=== PATIENT | female | born 1965 | race Caucasian/White ===

== ENCOUNTER 2019-12-07 20:39 | Emergency (ER) | payer SELFPAY ==
[~2019-12-07] VITALS: Ht 157.5 cm; Wt 97.5 kg
[2019-12-07 20:40] VITALS: BP 128/113
--- NOTE | 2019-12-07 20:43 | NUR ---
PT TAKEN TO BED 11
--- NOTE | 2019-12-07 20:45 | NUR ---
53 Y/O FEMALE PRESENTS TO ER WITH C/O BURNING/NEEDLES WITH URINATION, LATERAL LBP, BILATERAL LOWER ABDOMINAL QUADRANT PAIN 02/17. PT STATES SHE HAS BEEN HAVING THESE ISSUES FOR 1 YEAR. LATERAL LOWER BACK, AND BILATERAL LOWER ABDOMINAL QUADRANTS ARE TTP. WITH INTERMITTENT MONTHS WITHOUT SYMPTOMS. SOMETIMES HAS BLOOD WHEN WIPING AFTER URINATION. ALSO NAUSEA, CHILLS. DENIES VOMITING, DIARRHEA. AFEBRILE. DENIES SOB R/R EQUAL AND UNLABORED. PT IS MENOPAUSAL. SIDE RAIL X1, WILL CONTINUE TO MONITOR. PMH: HYPOTHYROIDISM NKDA
--- NOTE | 2019-12-07 20:55 | NUR ---
PT AMBULATED TO BATHROOM WITH STEADY GAIT. UA COLLECTED.
[2019-12-07] MEDS ORDERED: DEXAMETHASONE 4 MG/ML VIAL PO ONE (21:15)
[2019-12-07] MEDS ORDERED: MAGNESIUM CITRATE 300 ML BTL PO ONE (21:15)
--- NOTE | 2019-12-07 21:25 | NUR ---
GIS PHYSICAL SCIENTIST AT BEDSIDE.
--- NOTE | 2019-12-07 21:28 | NUR ---
PT TRANSFER TO CT VIA W/C.
[2019-12-07 21:39] LABS: BASOPHILS # (AUTO) 0.1 K/uL (0.00-0.22); BASOPHILS % (AUTO) 0.7 % (0.0-2.0); EOSINOPHILS # (AUTO) 0.4 K/uL (0-0.4); EOSINOPHILS % (AUTO) 4.8 % (0.0-4.0); HEMATOCRIT 45.4 % (36-48); HEMOGLOBIN 15.3 g/dL (12.0-16.0); LYMPHOCYTES # (AUTO) 2.5 K/uL (2.5-16.5); LYMPHOCYTES % (AUTO) 32.7 % (20.5-51.1); MEAN CORPUSCULAR HEMOGLOBIN 34 pg (27-31); MEAN CORPUSCULAR HGB CONC 34 g/dL (33-37); MEAN CORPUSCULAR VOLUME 99.9 fL (80-94); MONOCYTES # (AUTO) 0.4 K/uL (0.8-1.0); MONOCYTES % (AUTO) 4.9 % (1.7-9.3); NEUTROPHILS # (AUTO) 4.3 K/uL (1.8-7.7); NEUTROPHILS % (AUTO) 56.9 % (42.2-75.2); PLATELET COUNT (AUTO) 419 K/uL (140-450); RED BLOOD CELL COUNT(AUTO) 4.55 MIL/uL (4.20-5.40); RED CELL DISTRIBUTION WIDTH 13.6 % (11.6-13.7); WHITE BLOOD COUNT (AUTO) 7.6 K/uL (4.8-10.8)
--- NOTE | 2019-12-07 21:42 | NUR ---
PT RETURN FROM CT
[2019-12-07 21:44] LABS: BILIRUBIN,URINE 1+ (NEGATIVE); BLOOD, URINE 3+ (NEGATIVE); COLOR,URINE ORANGE (YELLOW); LEUKOCYTE ESTERASE ,URINE 1+ (NEGATIVE); NITRITE, URINE NEGATIVE (NEGATIVE); PH,URINE 6.5 (5.0-9.0); UGLUCOSE NEGATIVE (NEGATIVE)
[2019-12-07 21:53] LABS: ANION GAP 14.3 (8-16); CARBON DIOXIDE 26.6 mmol/L (21-32); CREATININE 1.3 mg/dL (0.6-1.3); POTASSIUM 3.9 mmol/L (3.5-5.1); TOTAL BILIRUBIN 0.7 mg/dL (0.0-1.0)
[2019-12-07 21:57] LABS: APPEARANCE,URINE CLOUDY (CLEAR)
[2019-12-07 22:00] LABS: RBC,URINE 20-50 /HPF (0-5); WBC,URINE 20-60 /HPF (0-5)
--- NOTE | 2019-12-07 22:14 | NUR ---
PT RESTING IN BED
[2019-12-07] MEDS ORDERED: HYDROcodone/APAP 5/325 MG 1 TAB TAB PO ONE (22:20)
[2019-12-07] MEDS ORDERED: PHENAZOPYRIDINE 100 MG TAB PO ONE (22:20)
[2019-12-07] MEDS ORDERED: CEPHALEXIN 500 MG CAP PO ONE (22:20)
[2019-12-07 22:35] VITALS: BP 128/83
--- NOTE | 2019-12-07 22:35 | NUR ---
Patient discharged with v/s stable. Written and verbal after care instructions given and explained. Patient alert, oriented and verbalized understanding of instructions. Ambulatory with steady gait. All questions addressed prior to discharge. ID band removed. Patient advised to follow up with PMD. Rx of PYRIDIUM; NORCO; KEFLEX; DULCOLAX given. Patient educated on indication of medication including possible reaction and side effects. Opportunity to ask questions provided and answered.
== END 2019-12-07 22:35 | disposition home or self-care (01) ==
LOC: MED 20:39
DX: N39.0 Urinary tract infection, site not specified (principal); K59.00 Constipation, unspecified; B35.6 Tinea cruris
CPT/HCPCS: 36415; 74176; 80053; 81001; 85025; 87086; 99284; J1100

== ENCOUNTER 2020-12-11 21:23 | Emergency (ER) | payer MEDICAID ==
[~2020-12-11] VITALS: Ht 157.5 cm; Wt 113.4 kg
[2020-12-11 21:32] VITALS: BP 134/83
--- NOTE | 2020-12-11 21:35 | NUR ---
TO LOBBY A/W BED VIA W/C
[2020-12-11 22:35] LABS: BASOPHILS # (AUTO) 0.1 K/uL (0.00-0.22); BASOPHILS % (AUTO) 0.9 % (0.0-2.0); EOSINOPHILS # (AUTO) 0.3 K/uL (0-0.4); EOSINOPHILS % (AUTO) 3.9 % (0.0-4.0); HEMATOCRIT 39.6 % (36-48); HEMOGLOBIN 13.6 g/dL (12.0-16.0); LYMPHOCYTES # (AUTO) 2.1 K/uL (2.5-16.5); LYMPHOCYTES % (AUTO) 32.2 % (20.5-51.1); MEAN CORPUSCULAR HEMOGLOBIN 34 pg (27-31); MEAN CORPUSCULAR HGB CONC 34 g/dL (33-37); MONOCYTES # (AUTO) 0.5 K/uL (0.8-1.0); MONOCYTES % (AUTO) 7.9 % (1.7-9.3); NEUTROPHILS # (AUTO) 3.6 K/uL (1.8-7.7); NEUTROPHILS % (AUTO) 55.1 % (42.2-75.2); PLATELET COUNT (AUTO) 396 K/uL (140-450); RED CELL DISTRIBUTION WIDTH 16.1 % (11.6-13.7); WHITE BLOOD COUNT (AUTO) 6.5 K/uL (4.8-10.8)
--- NOTE | 2020-12-11 22:39 | NUR ---
EKG PERFORMED IN TRIAGE ROOM WITH TRIAGE NURSE PRESENT. EKG READS SINUS RHYTHM @ 88
[2020-12-11 22:59] LABS: ALBUMIN 4.2 g/dL (3.4-5.0); ANION GAP 9.2 (8-16); CARBON DIOXIDE 28.5 mmol/L (21-32); POTASSIUM 3.7 mmol/L (3.5-5.1); TOTAL BILIRUBIN 0.5 mg/dL (0.0-1.0)
[2020-12-11] MEDS ORDERED: MAG SULF 2000 MG/WATER PREMIX 50 ML IV ONE (23:00)
--- NOTE | 2020-12-11 23:10 | NUR ---
54 Y/O FEMALE PRESENTED TO ED C/O BL LEG SWELLING X 2 DAYS. BL NON PITTING EDEMA NOTED. PT'S SKIN COOL TO TOUCH, DRY W/ SLIGHT MOTTLED APPEARANCE ON UPPER & LOWER EXTREMITIES. CAP REFIL > 3 SECS. PT DENIES ANY CHEST PAIN BUT DOES C/O OF MILD SOB. PT LUNG SOUNDS BL CLEAR. RR EVEN AND UNLABORED. +RADIAL PULSES , + PEDAL PULSES. PT DENIES COUGH, FEVER, BODY ACHES CHILLS. PT STATES SHE HAS HX OF HYPOTHYROIDISM AND IS CURRENTLY TAKING LEVOTHYROXINE BUT IS NOT ON THE DOSE SHE REALLY NEEDS TO BE ON. PT STATES SHE HAS HAD THIS SWELLING BEFORE BUT IS UNSURE WHAT THE CAUSE WAS FOR IT AND THAT IT WENT AWAY ON ITS OWN. PT CONNECTED TO INTERNSHIP COORDINATOR, PULSE OX AND BP CUFF. PT RESTING IN BED, LOCKED AND IN LOWEST POSITION ,HOB ELEVATED, SIDE RAIL X 1. VSS. NO ACUTE DISTRESS NOTED. PMH: HASHIMOTOS (HYPOTHYROID) NKA HOME MEDS: LEVOTHYROXINE 50 MCG
--- NOTE | 2020-12-11 23:20 | NUR ---
SPOKE W/ ERMJennifer ADAMSON REGARDING MAGNESIUM ADMINISTRATION - PER ERMD ADMINISTERING MAGNESIUM D/T PROLONGED QT INTERVALS NOTED ON EKG
[2020-12-12] MEDS ORDERED: FUROSEMIDE 40 MG/4 ML VIAL IVP ONE ×2 (00:05)
--- NOTE | 2020-12-12 00:21 | NUR ---
PT AMBULATED TO RESTROOM W/ STEADY GAIT.
--- NOTE | 2020-12-12 00:23 | NUR ---
PT AMBULATED TO ER BED 12 W/ STEADY GAIT. PT RECONNECTED TO CHIEF OF VITAL STATISTICS, PULSE OX AND BP CUFF. CALL LIGHT PLACED NEXT TO PT AT THIS TIME.
--- NOTE | 2020-12-12 00:25 | NUR ---
URINE SAMPLE COLLECTED, URINE DIP COMPLETED. URINE IN DIRTY UTILITY AT THIS TIME.
--- NOTE | 2020-12-12 00:42 | NUR ---
PT AMBULATED TO RESTROOM W/ STEADY GAIT.
--- NOTE | 2020-12-12 00:46 | NUR ---
PT AMBULATED TO ER BED 12 W/ STEADY GAIT. PT RECONNECTED TO AUTOMATIC BEADING LATHE OPERATOR , PULSE OX AND BP CUFF. CALL LIGHT W/IN REACH FOR PT CONVENIENCE.
--- NOTE | 2020-12-12 01:00 | NUR ---
PT AMBULATED TO RESTROOM W/ STEADY GAIT.
--- NOTE | 2020-12-12 01:11 | NUR ---
PT AMBULATED TO ER BED 12 W/ STEADY GAIT.
[2020-12-12] MEDS ORDERED: LEVO0.1T18 PO (01:17)
[2020-12-12] MEDS ORDERED: FURO-570 PO (01:17)
--- NOTE | 2020-12-12 01:35 | NUR ---
IV removed, catheter intact and site benign. Applied folded 4x4 gauze and tape to stop bleeding.
[2020-12-12 01:37] VITALS: BP 123/59
--- NOTE | 2020-12-12 01:37 | NUR ---
Patient discharged with v/s stable. Written and verbal after care instructions given and explained. Patient alert, oriented and verbalized understanding of instructions. Ambulatory with steady gait. All questions addressed prior to discharge. ID band removed. Patient advised to follow up with PMD. Rx of LASIX & LEVOTHYROXINE given. Patient educated on indication of medication including possible reaction and side effects. Opportunity to ask questions provided and answered.
== END 2020-12-12 01:37 | disposition home or self-care (01) ==
LOC: MED 21:23
DX: E03.9 Hypothyroidism, unspecified (principal); R60.0 Localized edema; Z79.899 Other long term (current) drug therapy
CPT/HCPCS: 36415; 71045; 80053; 81002; 83880; 84443; 85025; 85379; 93005; 96365; 96366; 96375; 99285; J1940; J3475

== ENCOUNTER 2021-01-01 21:17 | Emergency (ER) | payer MEDICAID ==
[~2021-01-01] VITALS: Ht 154.9 cm; Wt 111.6 kg
[~2021-01-01 21:17] MED LIST: FURO-570 PO; LEVO0.1T18 PO
[2021-01-01 21:44] VITALS: BP 143/97
--- NOTE | 2021-01-01 21:51 | NUR ---
PATIETN AMBUALTED TO RESTROOM WITH STEADY GAIT.
--- NOTE | 2021-01-01 21:53 | NUR ---
Shelton pandey in [facility] - 01/01/[address] at [address] Richards examining patient.
--- NOTE | 2021-01-01 21:57 | NUR ---
PT TAKEN TO BED 1
--- NOTE | 2021-01-01 22:00 | NUR ---
PATIENT BIB SELF FOR C/O PELVIC PAIN 5/10 RADIATING TO LOWER BACK. PATIENT STATES URINARY BURNING. PT VERBALIZED SLIGHT BLOODY VAGINAL DISCHARGE. PATIENT STATES L HAND NUMBNESS. MEDHX: HYPOTHYROID NKA
[2021-01-01] MEDS ORDERED: PHENAZOPYRIDINE 100 MG TAB PO ONE (22:10)
[2021-01-01] MEDS ORDERED: KETOROLAC 30 MG/ML VIAL IM ONE (22:10)
[2021-01-01 23:21] LABS: APPEARANCE,URINE CLOUDY (CLEAR); BILIRUBIN,URINE NEGATIVE (NEGATIVE); BLOOD, URINE 3+ (NEGATIVE); COLOR,URINE YELLOW (YELLOW); LEUKOCYTE ESTERASE ,URINE TRACE (NEGATIVE); NITRITE, URINE NEGATIVE (NEGATIVE); PH,URINE 7.5 (5.0-9.0); UGLUCOSE NEGATIVE (NEGATIVE)
[2021-01-01 23:32] LABS: RBC,URINE 50-80 /HPF (0-5)
[2021-01-02] MEDS ORDERED: HYDROcodone/APAP 5/325 MG 1 TAB TAB PO ONE (01:00)
[2021-01-02] MEDS ORDERED: NAPR-54 PO (01:01)
[2021-01-02] MEDS ORDERED: NITR100C7 PO (01:01)
[2021-01-02] MEDS ORDERED: PYR100 PO (01:01)
[2021-01-02 01:18] VITALS: BP 105/60
--- NOTE | 2021-01-02 01:18 | NUR ---
Patient discharged with v/s stable. Written and verbal after care instructions given and explained. Patient alert, oriented and verbalized understanding of instructions. Ambulatory with steady gait. All questions addressed prior to discharge. ID band removed. Patient advised to follow up with PMD. Rx of NAPROSYN, MACROBID, PYRIDIUM given. Patient educated on indication of medication including possible reaction and side effects. Opportunity to ask questions provided and answered.
== END 2021-01-02 01:18 | disposition home or self-care (01) ==
LOC: MED 21:17
DX: N39.0 Urinary tract infection, site not specified (principal); M54.9 Dorsalgia, unspecified; E03.9 Hypothyroidism, unspecified; F17.210 Nicotine dependence, cigarettes, uncomplicated; Z71.6 Tobacco abuse counseling; Z90.49 Acquired absence of other specified parts of digestive tract; Z79.899 Other long term (current) drug therapy
CPT/HCPCS: 81001; 81025; 87086; 96372; 99283; J1885

== ENCOUNTER 2021-07-24 22:07 | Emergency (ER) | payer MEDICAID ==
[~2021-07-24] VITALS: Ht 157.5 cm; Wt 99.8 kg
[~2021-07-24 22:07] MED LIST changes: +NAPR-54 PO; +NITR100C7 PO; +PYR100 PO
[2021-07-24 22:15] VITALS: BP 137/97
--- NOTE | 2021-07-24 22:15 | NUR ---
TO BED AMBULATORY
[2021-07-24] MEDS ORDERED: HYDROcodone/APAP 10/325 MG 1 TAB TAB PO ONE (23:05)
[2021-07-24] MEDS ORDERED: cefTRIAXone 1,000 MG in LIDOCAINE MPF 1% 2.1 ML IM ONE (23:05)
[2021-07-24] MEDS ORDERED: cefTRIAXone 1,000 MG VIAL ONE (23:20)
[2021-07-24] MEDS ORDERED: LIDOCAINE MPF 1% 5 ML ONE (23:21)
[2021-07-24] MEDS ORDERED: CEPH-588 PO (23:25)
[2021-07-24] MEDS ORDERED: IBUP-2213 PO (23:25)
[2021-07-24 23:46] VITALS: BP 132/72
--- NOTE | 2021-07-24 23:49 | NUR ---
PATIENT DC HOME FEELING WELL STABLE VITALS SIGNS IN NORMAL LIMITS ALL DC INSTRTUCTION WAS GAVE
== END 2021-07-24 23:45 | disposition home or self-care (01) ==
LOC: MED 22:07
DX: L03.115 Cellulitis of right lower limb (principal); L03.116 Cellulitis of left lower limb; E07.9 Disorder of thyroid, unspecified; F17.210 Nicotine dependence, cigarettes, uncomplicated
CPT/HCPCS: 96372; 99283; J0696; J2001

== ENCOUNTER 2022-07-08 00:50 | Emergency (ER) | payer MEDICAID ==
[~2022-07-08] VITALS: Ht 157.5 cm; Wt 99.8 kg
[~2022-07-08 00:50] MED LIST changes: +CEPH-588 PO; +IBUP-2213 PO
[2022-07-08 01:39] VITALS: BP 131/92
--- NOTE | 2022-07-08 02:06 | NUR ---
Dr. Roth examining patient.
[2022-07-08 02:39] LABS: BASOPHILS # (AUTO) 0.1 K/uL (0.00-0.22); EOSINOPHILS # (AUTO) 0.3 K/uL (0-0.4); EOSINOPHILS % (AUTO) 5.6 % (0.0-4.0); HEMATOCRIT 37.3 % (36-48); HEMOGLOBIN 12.9 g/dL (12.0-16.0); LYMPHOCYTES # (AUTO) 2.5 K/uL (2.5-16.5); LYMPHOCYTES % (AUTO) 40.8 % (20.5-51.1); MEAN CORPUSCULAR HEMOGLOBIN 35 pg (27-31); MEAN CORPUSCULAR HGB CONC 35 g/dL (33-37); MEAN CORPUSCULAR VOLUME 100.4 fL (80-94); MONOCYTES # (AUTO) 0.4 K/uL (0.8-1.0); MONOCYTES % (AUTO) 7.4 % (1.7-9.3); NEUTROPHILS # (AUTO) 2.7 K/uL (1.8-7.7); NEUTROPHILS % (AUTO) 45.2 % (42.2-75.2); PLATELET COUNT (AUTO) 339 K/uL (140-450); RED BLOOD CELL COUNT(AUTO) 3.71 MIL/uL (4.20-5.40); RED CELL DISTRIBUTION WIDTH 14.1 % (11.6-13.7)
--- NOTE | 2022-07-08 02:48 | NUR ---
Patient returned back from CT scan via .
[2022-07-08 03:17] LABS: ALBUMIN 4.4 g/dL (3.4-5.0); ANION GAP 10.3 (8-16); ASPARTATE AMINOTRANSFERASE 73 U/L (15-37); CARBON DIOXIDE 31.3 mmol/L (21-32); CHLORIDE 102 mmol/L (98-107); CREATININE 1.3 mg/dL (0.6-1.3); GFR ARICAN-AMERICAN 55 mL/min (>90); GLUCOSE 107 mg/dL (74-106); POTASSIUM 3.6 mmol/L (3.5-5.1); SODIUM SERUM 140 mmol/L (136-145); TOTAL BILIRUBIN 0.5 mg/dL (0.0-1.0); UREA NITROGEN, BLOOD 14 mg/dL (7-18)
--- NOTE | 2022-07-08 04:42 | NUR ---
Dr. Roth explained results and treatment plans.
[2022-07-08 04:46] VITALS: BP 124/92
--- NOTE | 2022-07-08 04:46 | NUR ---
Patient discharged with v/s stable. Written and verbal after care instructions given and explained. Patient verbalized understanding. Wheel Chair Assisted with to car. All questions addressed prior to discharge. Advised to follow up with PMD.
== END 2022-07-08 04:46 | disposition home or self-care (01) ==
LOC: MED 00:50
DX: R04.0 Epistaxis (principal); R20.0 Anesthesia of skin; R07.89 Other chest pain; E03.9 Hypothyroidism, unspecified
CPT/HCPCS: 36415; 70450; 71045; 80053; 84484; 85025; 93005; 99285; Q0092